=== PATIENT | male | born 1970 | race African-American/Black ===

== ENCOUNTER → 2017-05-11 | Outpatient (CLI) | payer OTHER ==
--- NOTE | 2017-05-11 13:24 | RAD ---
Abdominal ultrasound, 05/11/2017: History: Abdominal discomfort, pain The gallbladder is within normal limits in size. There is no sonographic evidence of cholelithiasis. The gallbladder wall is not thickened. No bile duct dilatation is seen. There is no evidence of a hepatic mass. The visualized portions of the pancreatic body are unremarkable. Other portions of the pancreas were obscured by overlying bowel. The abdominal aorta and inferior vena cava are of normal caliber. The spleen is unremarkable. No renal abnormality is detected. No free fluid is evident in the abdomen. IMPRESSION: No significant abnormality is detected.
== END | disposition home or self-care (01) ==
LOC: US 12:14
PROVIDERS: ATTEND Family Medicine
DX: R10.9 Unspecified abdominal pain (principal)
CPT/HCPCS: 76700

== ENCOUNTER 2017-08-17 13:22 | Emergency (ER) | payer OTHER | END 2017-08-17 13:46 | disposition home or self-care (01) | LOC: ER 13:22 | DX: M62.830 Muscle spasm of back (principal); F12.10 Cannabis abuse, uncomplicated; G89.29 Other chronic pain | CPT/HCPCS: 99283 ==

== ENCOUNTER 2018-02-04 07:16 | Emergency (ER) | payer OTHER ==
[~2018-02-04] VITALS: Ht 170.2 cm; Wt 62.1 kg
[~2018-02-04 07:16] MED LIST: HYDR-971 PO; PRED20TA PO
[2018-02-04] MEDS ORDERED: diphenhydrAMINE 50 MG/ML VIAL IVP ONE (07:45)
[2018-02-04] MEDS ORDERED: IV NORMAL SALINE 1000ML BAG 1,000 ML IV ONE (07:45)
[2018-02-04] MEDS ORDERED: PROCHLORPERAZINE 10 MG/2 ML VIAL. IV ONE (07:45)
--- NOTE | 2018-02-04 07:59 | PHYS DOC ---
Past Medical History Past Medical History: No Pertinent History Past Surgical History: Other Additional Past Surgical Histo: L ARM Additional Information: 06/07 ppd Alcohol Use: Occasionally Drug Use: Marijuana Adult General Chief Complaint Chief Complaint: NAUSEA/VOMITING/DIARRHA HPI HPI Patient is a 47 year old male who presents with nausea and vomiting. Patient became ill earlier this morning when he woke up. C/o severe nausea with emesis and watery diarrhea. No recent travel. No ill family members. + chills but no documented fever. Patient does give ROS for anorexia that has been chronic. Denies abdominal pain. Denies recent weight loss. Normally thin. Review of Systems Review of Systems Constitutional: + chills Eyes: Denies change in visual acuity HENT: Denies nasal congestion or sore throat Respiratory: Denies cough Cardiovascular: No additional information not addressed in HPI GI: Denies abdominal pain : Denies dysuria Musculoskeletal: Denies back pain Integument: Denies rash or skin lesions Neurologic: Denies headache Endocrine: Denies polyuria All other systems were reviewed and found to be within normal limits, except as documented in this note. Current Medications Current Medications Current Medications Medications (Trade) Dose Ordered Sig/Rocio Start Time Stop Time Status Last Admin Dose Admin Diphenhydramine HCl (Benadryl) 12.5 mg 1X ONCE 02/04/18 07:45 02/04/18 07:46 DC 02/04/18 07:57 12.5 MG Info (CONTRAST GIVEN -- Rx MONITORING) 1 each PRN DAILY PRN 02/04/18 08:30 02/06/18 08:29 Iohexol (Omnipaque 300 Mg/ml) 75 ml 1X ONCE 02/04/18 08:30 02/04/18 08:31 DC Prochlorperazine Edisylate (Compazine) 10 mg 1X ONCE 02/04/18 07:45 02/04/18 07:46 DC 02/04/18 07:59 10 MG Sodium Chloride 1,000 ml @ 1,000 mls/hr 1X ONCE 02/04/18 07:45 02/04/18 08:44 DC 02/04/18 07:55 1,000 MLS/HR Allergies Allergies Allergies Coded Allergies Type Severity Reaction Last Updated Verified No Known Drug Allergies 08/17/17 No Physical Exam Physical Exam 5 Constitutional: thin AA male in mild distress 2/2 nausea HENT: Normocephalic, atraumatic, bilateral external ears normal, mucous membranes dry Eyes: PERRLA, EOMI, conjunctiva normal Neck: Normal range of motion, no tenderness, supple Cardiovascular:Heart rate regular rhythm, no murmur Lungs & Thorax: Bilateral breath sounds clear to auscultation Abdomen: Bowel sounds normal, soft, no tenderness Skin: Warm, dry, no erythema Back: No tenderness Extremities: No tenderness, no cyanosis Neurologic: Alert and oriented X 3, normal motor function Psychologic: Affect normal Current Patient Data Vital Signs Vital Signs Date Time Temp Pulse Resp B/P (MAP) Pulse Ox O2 Delivery O2 Flow Rate FiO2 02/04/18 08:45 58 16 134/77 (96) Room Air 02/04/18 08:15 99 02/04/18 07:22 98.2 98.2 Lab Values Laboratory Tests Test 02/04/18 07:30 02/04/18 09:00 White Blood Count 3.9 x10^3/uL (4.0-11.0) L Red Blood Count 5.16 x10^6/uL (4.30-5.70) Hemoglobin 14.5 g/dL (13.0-17.5) Hematocrit 41.9 % (39.0-53.0) Mean Corpuscular Volume 81 fL (79-100) Mean Corpuscular Hemoglobin 28 pg (25-35) Mean Corpuscular Hemoglobin Concent 35 g/dL (31-37) Red Cell Distribution Width 13.2 % (11.5-14.5) Platelet Count 120 x10^3/uL (140-400) L Neutrophils (%) (Auto) 49 % (31-73) Lymphocytes (%) (Auto) 40 % (24-48) Monocytes (%) (Auto) 8 % (0-9) Eosinophils (%) (Auto) 2 % (0-3) Basophils (%) (Auto) 1 % (0-3) Neutrophils # (Auto) 1.9 x10^3uL (1.8-7.7) Lymphocytes # (Auto) 1.6 x10^3/uL (1.0-4.8) Monocytes # (Auto) 0.3 x10^3/uL (0.0-1.1) Eosinophils # (Auto) 0.1 x10^3/uL (0.0-0.7) Basophils # (Auto) 0.0 x10^3/uL (0.0-0.2) Sodium Level 142 mmol/L (136-145) Potassium Level 3.4 mmol/L (3.5-5.1) L Chloride Level 107 mmol/L (98-107) Carbon Dioxide Level 23 mmol/L (21-32) Anion Gap 12 (6-14) Blood Urea Nitrogen 9 mg/dL (8-26) Creatinine 1.0 mg/dL (0.7-1.3) Estimated GFR (Cockcroft-Gault) 96.1 Glucose Level 111 mg/dL (70-99) H Calcium Level 8.8 mg/dL (8.5-10.1) Urine Collection Type Unknown Urine Color Yellow Urine Clarity Clear Urine pH 8.5 Urine Specific Alex 1.015 Urine Protein 30 mg/dL (NEG-TRACE) Urine Glucose (UA) Negative mg/dL (NEG) Urine Ketones (Stick) Negative mg/dL (NEG) Urine Blood Negative (NEG) Urine Nitrite Negative (NEG) Urine Bilirubin Negative (NEG) Urine Urobilinogen Dipstick 0.2 mg/dL (0.2 mg/dL) Urine Leukocyte Esterase Negative (NEG) Urine RBC 0 /HPF (0-2) Urine WBC 0 /HPF (0-4) Urine Squamous Epithelial Cells Few /LPF Urine Bacteria 0 /HPF (0-FEW) Laboratory Tests 02/04/18 07:30 Laboratory Tests 02/04/18 07:30 EKG EKG [] Radiology/Procedures Radiology/Procedures [] Course & Med Decision Making Course & Med Decision Making Pertinent Labs and Imaging studies reviewed. (See chart for details) 07:35: Patient is seen and examined. Actively heaving. Meds ordered. 09:20: Patient much improved. Sleeping but arouses easily. Tolerating PO. No acute lab abnormalities. Requesting discharge home. Consideration was given for CT scan, but patient declined this study. Abdominal exam is benign. Accompanied by significant other who is driving him home today. Dragon Disclaimer Dragon Disclaimer This electronic medical record was generated, in whole or in part, using a voice recognition dictation system. Departure Departure Referrals: Adriano CONLEY MD (PCP) Scripts Metoclopramide Hcl (REGLAN) 10 Mg Tablet 10 MG PO TID PRN for NAUSEA/VOMITING, #10 TAB 0 Refills Prov: GABINO GARG DO 02/04/18 GABINO GARG DO Feb 04, 2018 07:59
[2018-02-04 08:03] LABS: BASO % 1 % (0-3); EOS # 0.1 x10^3/uL (0.0-0.7); EOS % 2 % (0-3); HEMATOCRIT 41.9 % (39.0-53.0); HEMOGLOBIN 14.5 g/dL (13.0-17.5); LYMPH # 1.6 x10^3/uL (1.0-4.8); LYMPH % 40 % (24-48); MEAN CORPUSCULAR HEMOGLOBIN 28 pg (25-35); MEAN CORPUSCULAR HGB CONC 35 g/dL (31-37); MEAN CORPUSCULAR VOLUME 81 fL (79-100); MONO # 0.3 x10^3/uL (0.0-1.1); MONO % 8 % (0-9); NEUT # 1.9 x10^3uL (1.8-7.7); NEUT % 49 % (31-73); PLATELET COUNT 120 x10^3/uL (140-400); RED BLOOD COUNT 5.16 x10^6/uL (4.30-5.70); RED CELL DISTRIBUTION WIDTH 13.2 % (11.5-14.5); WHITE BLOOD COUNT 3.9 x10^3/uL (4.0-11.0)
[2018-02-04 08:07] LABS: CALCIUM 8.8 mg/dL (8.5-10.1); GFR 96.1; POTASSIUM 3.4 mmol/L (3.5-5.1)
[2018-02-04] MEDS ORDERED: IOHEXOL 300 MG/ML 100ML VIAL. IV ONE (08:30)
[2018-02-04] MEDS ORDERED: CONTRAST GIVEN. MC PRN (08:30)
[2018-02-04 09:07] LABS: BILIRUBIN,URINE NEGATIVE (NEG); CLARITY,URINE CLEAR; COLOR,URINE YELLOW; NITRITE,URINE NEGATIVE (NEG); PH,URINE 8.5; PROTEIN,URINE 30 mg/dL (NEG-TRACE); UROBILINOGEN,URINE 0.2 mg/dL (0.2 mg/dL)
[2018-02-04 09:10] LABS: BACTERIA,URINE 0 /HPF (0-FEW); RBC,URINE 0 /HPF (0-2); SQUAMOUS EPITHELIAL CELL,UR FEW /LPF; WBC,URINE 0 /HPF (0-4)
[2018-02-04 09:15] VITALS: BP 151/76
[2018-02-04] MEDS ORDERED: METO10TA81 PO (09:16)
== END 2018-02-04 09:35 | disposition home or self-care (01) ==
LOC: ER 07:16
DX: R11.2 Nausea with vomiting, unspecified (principal); R19.7 Diarrhea, unspecified; R63.0 Anorexia; F17.200 Nicotine dependence, unspecified, uncomplicated
CPT/HCPCS: 36415; 80048; 81001; 85025; 96361; 96374; 96375; 99285; J0780; J1200; J7030

== ENCOUNTER → 2020-03-04 | Outpatient (CLI) | payer OTHER ==
[~2020-03-04] MED LIST changes: +HYDR-3164 PO; -HYDR-971 PO; +IBUP-1060 PO; +METO10TA81 PO
== END | disposition home or self-care (01) ==
LOC: LAB 13:51
PROVIDERS: ATTEND Surgery
DX: Z01.812 Encounter for preprocedural laboratory examination (principal); R22.1 Localized swelling, mass and lump, neck; Z20.828 Contact with and (suspected) exposure to other viral communicable diseases
CPT/HCPCS: U0003-CS

== ENCOUNTER → 2020-03-07 | Day surgery (SDC) | payer OTHER ==
[~2020-03-07] MED LIST changes: +IV RINGERS,LACTATED 1000ML 1,000 ML IV ONE; +LIDOCAINE 1%/EPI 1:100,000 20 ML VIAL. INJ ONE
--- NOTE | 2020-03-07 10:55 | PDOC4 ---
Operative Note Operative Note Date: 03/07/2020 1054 Preoperative diagnosis: Right neck mass Postoperative diagnosis: Same Procedure: Excision of right neck mass Surgeon: Jose Specimen: Right neck mass Dictation: Patient is a 49-year-old gentleman is complained of enlarging mass on his right posterior neck. Procedure of excision of mass was explained to the patient detail risk-benefit were also discussed including bleeding infection alternatives to this procedure also discussed with the patient who seemed to understand and gave both verbal and written consent to have the procedure performed. Patient was taken to the minors room in the sitting position his right posterior neck was prepped and draped usual sterile fashion using ChloraPrep. An area over the mass was injected with 1% lidocaine with epinephrine once this is anesthetized and incision was made with 15 blade scalpel is carried down to the subcutaneous tissues until the mass was encountered which was sharply excised with the Metzenbaum scissors and sent for pathology size the mass approximately 2 x 2 cm appear to be a lipoma. The wound was then closed in a single layer 4-0 subcuticular Monocryl Mastisol Steri- Strips and island dressing were applied. Patient was discharged home in stable condition all sponge instrument needle counts listed as correct estimated blood loss 5 mL. MARGARITA OWNE MD Mar 07, 2020 10:55
--- NOTE | 2020-03-07 10:57 | DISCH ---
DISCHARGE INSTRUCTIONS Condition on Discharge Condition on Discharge: Stable Activity After Discharge Activity Instructions for Disc: Activity as tolerated Diet after Discharge Diet after Discharge: Regular Wound Incision Care Other wound/incision instructi: May shower in 24 hours Contacting the after DC Call your doctor for: If your condition worsens Follow-Up Follow up with: Dr. Owen in 2 weeks MARGARITA OWEN MD Mar 07, 2020 10:57
--- NOTE | 2020-03-10 15:07 | PATHOLOGY ---
[facility] Accession Number: [id number] . 01 Material submitted: . neck - RIGHT NECK MASS. Modifiers: right . 01 Clinical history: . NECK MASS . 02 Diagnosis: Adipose tissue, right posterior neck mass excision: - Lipoma. (JPM:haroon; 03/10/2020) QMS 03/10/2020 1040 Local . 02 Comment: There is no evidence of malignancy. (JPM:haroon; 03/10/2020) . 02 Electronically signed: . Keenan Castellon MD, Pathologist NPI- [id number] . 01 Gross description: . The specimen is received in formalin, labeled "Freddy Lim, right neck mass" and consists of an irregular segment of yellow orange lobulated tissue measuring 3.0 x 2.6 x 1.0 cm. Sectioning reveals homogeneous yellow orange cut surfaces and residential sales representative sections are submitted in A1. (SDY; 03/07/2020) SYU/SYU 03/10/2020 1039 Local . 02 Pathologist provided ICD-10: D17.0 . 02 CPT . 384834 Specimen Comment: A courtesy copy of this report has been sent to [phone], [phone] Specimen Comment: [id number] Specimen Comment: Report sent to / DR CONLEY Performed at: 01 [facility] [address], [place] [id number] MD Josue Pacheco MD Phone: [phone] Performed at: 02 [facility] [address] [place], [place] [id number] MD Keenan Castellon MD Phone: [phone]
== END | disposition home or self-care (01) ==
LOC: SURG 10:12
PROVIDERS: ATTEND Surgery
DX: D17.0 Benign lipomatous neoplasm of skin and subcutaneous tissue of head, face and neck (principal); F17.210 Nicotine dependence, cigarettes, uncomplicated; Z79.899 Other long term (current) drug therapy
CPT/HCPCS: 11424; 88304; J3490